=== PATIENT | male | born 1955 ===

== ENCOUNTER 2017-02-21 13:44 | Emergency (ER) | payer MEDICAID, OTHER ==
[2017-02-21 13:56] VITALS: TEMP 97.7
[2017-02-21] MEDS ORDERED: (Novolin R) Insulin Human Regular 100 units/ml vial IV STA (14:01)
[2017-02-21] MEDS ORDERED: Sodium Chloride 0.9% 1,000 ML IV STA (14:01)
[2017-02-21 14:11] LABS: BASO % 0.4 % (0.0-2.0); EOS % 0.1 % (0.0-4.0); HEMOGLOBIN 9.2 g/dL (12.0-18.0); LYMPH # 0.5 K/uL (1.0-4.3); LYMPH % 6.9 % (20.0-40.0); MEAN CORPUSCULAR HEMOGLOBIN 23.4 pg (27.0-31.0); MEAN CORPUSCULAR HGB CONC 32.5 g/dL (33.0-37.0); MEAN PLATELET VOLUME 9.1 fL (7.2-11.7); MONO # 0.3 K/uL (0.0-0.8); MONO % 4.8 % (0.0-10.0); NEUT % 87.8 % (50.0-75.0); NRBC % 0.1 % (0.0-2.0); PLATELET COUNT 219 K/uL (130-400); RBC 3.95 Mil/uL (4.40-5.90); RED CELL DISTRIBUTION WIDTH 15.7 % (11.5-14.5); WHITE BLOOD COUNT 6.9 K/uL (4.8-10.8)
[2017-02-21 14:13] LABS: PROTHROMBIN TIME 11.6 SECONDS (9.7-12.2)
[2017-02-21] MEDS ORDERED: (Novolin R) Insulin Human Regular 100 units/ml vial ONE (14:15)
[2017-02-21] MEDS ORDERED: Insulin Human Regular 100 UNIT in Sodium Chloride 0.9% 99 ML IV SCH (14:15)
--- NOTE | 2017-02-21 14:21 | RAD ---
PROCEDURE: CHEST RADIOGRAPH, 1 VIEW HISTORY: BASELINE COMPARISON: None available. FINDINGS: LUNGS: The lungs are well inflated and clear. PLEURA: No pneumothorax or pleural fluid seen. CARDIOVASCULAR: Normal. OSSEOUS STRUCTURES: No significant abnormalities. VISUALIZED UPPER ABDOMEN: Normal. OTHER FINDINGS: None. IMPRESSION: No active pulmonary disease.
[2017-02-21 14:27] LABS: ALB/GLOB RATIO 1.1 (1.0-2.1); ALBUMIN 3.8 g/dL (3.5-5.0); ALT/SGPT 111 U/L (21-72); AST/SGOT 49 U/L (17-59); BLOOD UREA NITROGEN 26 mg/dL (9-20); CALCIUM 8.2 mg/dl (8.6-10.4); GFR AFRICAN-AMERICAN > 60; GFR NON-AFRICAN AMERICAN > 60
[2017-02-21 14:38] LABS: CK-MB 5.61 ng/mL (0.0-3.38)
[2017-02-21 14:41] LABS: ABG ALLEN TEST PO; ARTERIAL BLOOD GAS HCO3 22.3 mmol/L (21-28); ARTERIAL BLOOD GAS O2 SAT 98.8 % (95-98); ARTERIAL BLOOD GAS PCO2 32 mm/Hg (35-45); ARTERIAL BLOOD GAS PH 7.41 (7.35-7.45); ARTERIAL BLOOD GAS PO2 111 mm/Hg (80-100); ARTERIAL BLOOD GAS TCO2 21.3 mmol/L (22-28)
[2017-02-21 14:42] LABS: LYMPHOCYTE 7 % (20-40); MONOCYTE 6 % (0-10); NEUTROPHIL 87 % (50-75); TOTAL CELLS COUNTED 100
[2017-02-21 14:43] LABS: ANISOCYTOSIS SLIGHT; PLATELET ESTIMATE NORMAL (NORMAL); POIKILOCYTOSIS SLIGHT
[2017-02-21 14:44] LABS: HYPOCHROMIC SLIGHT; MICROCYTOSIS SLIGHT; OVALOCYTES SLIGHT; TARGET CELLS SLIGHT; TEARDROP CELLS SLIGHT
[2017-02-21 15:01] LABS: URINE BILIRUBIN NEGATIVE (NEGATIVE); URINE BLOOD NEGATIVE (NEGATIVE); URINE CLARITY Clear (Clear); URINE COLOR Straw (YELLOW); URINE GLUCOSE (UA) 3+ mg/dL (Normal); URINE LEUKOCYTE ESTERASE NEG Leu/uL (Negative); URINE NITRATE NEGATIVE (NEGATIVE); URINE PROTEIN NEGATIVE (NEGATIVE); URINE UROBILINOGEN NORMAL mg/dL (0.2-1.0)
--- NOTE | 2017-02-21 15:50 | C.PDOC ---
Time Seen by Provider: 02/21/17 13:57 Chief Complaint (Nursing): GI Problem Past Medical History Vital Signs: Last Vital Signs Temp 97.7 F 02/21/17 13:50 Pulse 112 H 02/21/17 15:51 Resp 22 02/21/17 15:51 BP 117/65 02/21/17 15:51 Pulse Ox 98 02/25/17 00:34 - Social History Hx Alcohol Use: No Hx Substance Use: No ED Course And Treatment - Laboratory Results Result Diagrams: 02/21/17 14:01 02/21/17 14:01 O2 Sat by Pulse Oximetry: 98 - Radiology CXR: Viewed By Me, Read By Radiologist CXR Interpretation: Yes: Other (IMPRESSION: No active pulmonary disease.) Disposition Doctor Will See Patient In The: Office Counseled Patient/Family Regarding: Studies Performed, Diagnosis - Disposition [facility] Disposition: HOME/ ROUTINE Condition: GOOD Additional Instructions: Continue Glargine Insulin subcutaneous 30 units before bed. Continue Pioglitazone 30 mg daily- take in AM with breakfast (never take without food) Check your finger stick BEFORE breakfast and Dinner and write down in your Fingerstick Log Bring to your Clinic visit in 2 weeks. Prescriptions: Blood Sugar Diagnostic [Test Strips] 1 each MC AC #60 strip Insulin Glargine,Hum.rec.anlog [Talha Lacey] 30 unit SQ HS #3 insuln.pen Lancets 1 each MC BID #60 each Pioglitazone [Actos] 30 mg PO DAILY #30 tab Instructions: Diabetes Mellitus Type 2 in Adults (ED) Forms: [employer] (Chinese) - Clinical Impression Clinical Impression: Hyperglycemia
[2017-02-21 15:54] VITALS: BP 117/65; PULSE 112; RESP 22; O2SAT 98
--- NOTE | 2017-02-21 15:54 | C.PDOC ---
History Of Present Illness 61 year old male with a past medical history of diabetes who presents to the emergency department with abnormally large volumes of dilute urine and excessive thrist. States he has an uncontrollable blood sugar at home. Patient ran out of Lantus and oral diabetes medications 2 weeks ago and did not refill his medications yet. Patient usually follows up with [facility]. Time Seen by Provider: 02/21/17 13:57 Chief Complaint (Nursing): GI Problem History Per: Patient History/Exam Limitations: no limitations Past Medical History Reviewed: Historical Data, Nursing Documentation, Vital Signs Vital Signs: Last Vital Signs Temp 97.7 F 02/21/17 13:50 Pulse 112 H 02/21/17 15:51 Resp 22 02/21/17 15:51 BP 117/65 02/21/17 15:51 Pulse Ox 98 02/25/17 00:35 - Medical History PMH: Diabetes Family History: States: No Known Family Hx - Social History Hx Alcohol Use: No Hx Substance Use: No Review Of Systems Except As Marked, All Systems Reviewed And Found Negative. (As per HPI, otherwise negative) ENT: Positive for: Other (Excessive thrist) Gastrointestinal: Positive for: Other (abnormally large volumes of dilute urine) Physical Exam - Physical Exam Appears: Well, Non-toxic Skin: Normal Color, Warm, Dry Head: Atraumatic, Normacephalic Eye(s): bilateral: Normal Inspection Ear(s): Bilateral: Normal Oral Mucosa: Dry (oropharynx) Teeth: Normal Dentition Gingiva: Normal Appearing Throat: Normal Cardiovascular: Rhythm Regular, No Murmur Respiratory: Normal Breath Sounds, No Decreased Breath Sounds, No Accessory Muscle Use, No Wheezing Gastrointestinal/Abdominal: Normal Exam, Soft, No Tenderness Extremity: Normal ROM, No Pedal Edema Neurological/Psych: Oriented x3 Gait: Steady ED Course And Treatment - Laboratory Results Result Diagrams: 02/21/17 14:01 02/21/17 14:01 Lab Interpretation: Abnormal (elev glu, recheck WNL, ABG wnl, ketones neg., no acidosis) ECG Rhythm: Sinus Tachycardia ECG Interpretation: Abnormal Rate From EC O2 Sat by Pulse Oximetry: 98 (RA) Pulse Ox Interpretation: Normal - Radiology CXR: Interpreted by Nv CXR Interpretation: Yes: No Acute Disease Progress Note: insulin, IVF Reevaluation Time: 15:54 Reassessment Condition: Improved Medical Decision Making Medical Decision Making: uncontrolled DM, ran out of meds 2 weeks ago NO DKA Glargine 30 U QHS Pioglitazone 30 mg daily refill test strips/lancets outpatient f/u w [facility] w weeks. NO Hematemasis- normal bilious vomiting, no s/s of upper GIB Time: 1420 --Chest x-ray IMPRESSION: No active pulmonary disease. Time: 1556 --Patient is stable for discharge. Sent home with Rx of Test strips, Toujeo Solostar 30 units, and Actos 30 mg. Disposition Doctor Will See Patient In The: Office Counseled Patient/Family Regarding: Studies Performed, Diagnosis - Disposition Referrals: [facility] [employer] [Outside] Disposition: HOME/ ROUTINE Disposition Time: 15:56 Condition: GOOD Additional Instructions: Continue Glargine Insulin subcutaneous 30 units before bed. Continue Pioglitazone 30 mg daily- take in AM with breakfast (never take without food) Check your finger stick BEFORE breakfast and Dinner and write down in your Fingerstick Log Bring to your Clinic visit in 2 weeks. Prescriptions: Blood Sugar Diagnostic [Test Strips] 1 each AC #60 strip Insulin Glargine,Hum.rec.anlog [Toujeo Solostar] 30 unit SQ HS #3 insuln.pen Lancets 1 each MC BID #60 each Pioglitazone [Actos] 30 mg PO DAILY #30 tab Instructions: Diabetes Mellitus Type 2 in Adults (ED) Forms: [employer] (Azeri) - Clinical Impression Clinical Impression: Hyperglycemia
--- NOTE | 2017-02-26 16:24 | CARD ---
APPROVED REPORT EKG Measurement Heart [id number] <Conclusion> Sinus tachycardia Otherwise normal ECG
== END 2017-02-21 16:20 | disposition home or self-care (01) ==
LOC: C.ER 13:44
DX: E11.65 Type 2 diabetes mellitus with hyperglycemia (principal)
CPT/HCPCS: 71045; 80053; 81001; 82009; 82803; 82948; 83036; 84484; 85025; 85610; 85730; 93005; 96360; 99285; J7040

== ENCOUNTER 2017-04-04 16:35 | Inpatient (IN) | payer MEDICAID, OTHER ==
[2017-04-04 17:17] VITALS: BMI 23.9
[2017-04-04 18:41] LABS: EOS # 0.1 K/uL (0.0-0.7); EOS % 1.7 % (0.0-4.0); LYMPH # 0.5 K/uL (1.0-4.3); MONO # 0.3 K/uL (0.0-0.8); NRBC % 0.2 % (0.0-2.0)
[2017-04-04 18:46] LABS: BASO % 0.5 % (0.0-2.0); LYMPH % 16.3 % (20.0-40.0); MEAN CELL VOLUME 64.3 fL (80.0-94.0); MEAN CORPUSCULAR HEMOGLOBIN 18.8 pg (27.0-31.0); MEAN CORPUSCULAR HGB CONC 29.3 g/dL (33.0-37.0); MEAN PLATELET VOLUME 8.8 fL (7.2-11.7); NEUT # 2.3 K/uL (1.8-7.0); NEUT % 72.5 % (50.0-75.0); RBC 2.75 Mil/uL (4.40-5.90); RED CELL DISTRIBUTION WIDTH 18.5 % (11.5-14.5); WHITE BLOOD COUNT 3.2 K/uL (4.8-10.8)
[2017-04-04 18:51] LABS: HEMOGLOBIN 5.2 g/dL (12.0-18.0)
[2017-04-04 18:52] LABS: ALB/GLOB RATIO 1.1 (1.0-2.1); ALBUMIN 3.3 g/dL (3.5-5.0); ALT/SGPT 123 U/L (21-72); AST/SGOT 74 U/L (17-59); BLOOD UREA NITROGEN 16 mg/dL (9-20); CALCIUM 8.3 mg/dl (8.6-10.4); GFR AFRICAN-AMERICAN > 60; GFR NON-AFRICAN AMERICAN > 60; INR 1.1; PROTHROMBIN TIME 11.8 SECONDS (9.7-12.2)
[2017-04-04 19:03] LABS: B-TYPE NATRIURETIC PEPTIDE 125 pg/mL (0-900)
--- NOTE | 2017-04-04 19:08 | C.PDOC ---
History Of Present Illness 62 y/o male referred to ED for dyspnea on exertion and leg swelling for the past week. Pt was found to have hemoglobin of 5.3 at PMD office. Denies chest pain, cough, black tarry stool, milad blood in stool/urine, or fever. Denies history of blood transfusion in the past. Chief Complaint (Nursing): Abnormal Labs History Per: Patient History/Exam Limitations: no limitations Onset/Duration Of Symptoms: Days Current Symptoms Are (Timing): Still Present Reports Recently: Treated By A Physician Recent travel outside of the [place]: No Additional History Per: Patient Past Medical History Reviewed: Historical Data, Nursing Documentation, Vital Signs Vital Signs: Last Vital Signs Temp 98.3 F 04/04/17 22:54 Pulse 107 H 04/04/17 22:54 Resp 18 04/04/17 22:54 BP 118/66 04/04/17 22:54 Pulse Ox 97 04/04/17 22:54 - Medical History PMH: Diabetes Family History: States: Unknown Family Hx - Social History Hx Alcohol Use: No (Former) Hx Substance Use: No - Immunization History Hx Tetanus Toxoid Vaccination: No Hx Influenza Vaccination: No Hx Pneumococcal Vaccination: No Review Of Systems Except As Marked, All Systems Reviewed And Found Negative. Constitutional: Negative for: Fever, Chills Cardiovascular: Positive for: Edema (leg swelling). Negative for: Chest Pain, Palpitations Respiratory: Positive for: Shortness of Breath, SOB with Excertion. Negative for: Cough, Sputum Gastrointestinal: Negative for: Nausea, Vomiting, Abdominal Pain, Diarrhea, Melena, Hematochezia, Hematemesis Genitourinary: Negative for: Dysuria, Hematuria Musculoskeletal: Negative for: Back Pain Physical Exam - Physical Exam Appears: Non-toxic, No Acute Distress Skin: Warm, Dry, Pale Head: Atraumatic, Normacephalic Eye(s): bilateral: Conjunctiva Pale Oral Mucosa: Moist Cardiovascular: Rhythm Regular Respiratory: Normal Breath Sounds, No Rales, No Rhonchi, No Wheezing Gastrointestinal/Abdominal: Soft, No Tenderness Extremity: Normal ROM, Pedal Edema (edema to bilateral knees), Capillary Refill (less than 2 seconds), No Deformity Neurological/Psych: Oriented x3, Normal Speech ED Course And Treatment - Laboratory Results Result Diagrams: 04/04/17 18:34 04/04/17 18:34 O2 Sat by Pulse Oximetry: 99 Pulse Ox Interpretation: Normal Medical Decision Making Medical Decision Making: Plan: Blood work Urinalysis CXR/EKG Reassess Disposition - Disposition Disposition: HOSPITALIZED Disposition Time: 18:40 Condition: FAIR - Clinical Impression Clinical Impression: Symptomatic anemia - Scribe Statement The provider has reviewed the documentation as recorded by the Poojaibmae Russell All medical record entries made by the Poojaibmae were at my direction and personally dictated by me. I have reviewed the chart and agree that the record accurately reflects my personal performance of the history, physical exam, medical decision making, and the department course for this patient. I have also personally directed, reviewed, and agree with the discharge instructions and disposition.
--- NOTE | 2017-04-04 20:04 | CP.PCM.HP ---
<Alondra Anglin - Last Filed: 04/04/17 21:18> History of Present Illness - History of Present Illness History of Present Illness: Medicine Note for Hospitalist Service CC: low hemoglobin, sent by PMD HPI: 62 Male with PMHx of T2DM (diagnosed 2017) presents to the ED after being sent in by PMD for low hemoglobin. Patient reports for the past month or so he has been feeling fatigue, weak, short of breath during ambulation (up stairs or walking 2-3 blocks). His daughter was at bedside and said she noticed her father started looking pale this weak. He reported no blood in stool. He denied any presyncope or syncopal episode. He admitted to noticing bilateral lower extremity swelling 2-3 days ago. Patient has never had a colonoscopy before. Denied fever, chills, headache, chest pain, SOB, abdominal pain, n/v/d/c, or urinary symptoms. PMHx: T2DM PSHx: Denied Meds: All: NKDA SHx: Denied tobacco, alcohol, or illicit drug use FHx: Unremarkable PMD: [facility] Present on Admission - Present on Admission Any Indicators Present on Admission: Yes History of Uncontrolled Diabetes: Yes Past Patient History - Infectious Disease Hx of Infectious Diseases: None - Past Social History Smoking Status: Never Smoked - PSYCHIATRIC Hx Substance Use: No - SURGICAL HISTORY Hx Surgeries: No - ANESTHESIA Hx Anesthesia: No Meds Allergies/Adverse Reactions: Allergies Allergy/AdvReac Type Severity Reaction Status Date / Time No Known Allergies Allergy Verified 04/04/17 17:15 Physical Exam - Constitutional Appears: No Acute Distress - Head Exam Head Exam: NORMAL INSPECTION, NORMOCEPHALIC - Eye Exam Eye Exam: EOMI, Normal appearance, PERRL Pupil Exam: NORMAL ACCOMODATION - ENT Exam ENT Exam: Mucous Membranes Moist (poor dentition ) - Respiratory Exam Respiratory Exam: Clear to Auscultation Bilateral, NORMAL BREATHING PATTERN - Cardiovascular Exam Cardiovascular Exam: REGULAR RHYTHM - GI/Abdominal Exam GI & Abdominal Exam: Normal Bowel Sounds, Soft. absent: Distended, Tenderness - Rectal Exam Rectal Exam: Deferred (performed by ED physician ) - Extremities Exam Extremities exam: Positive for: normal inspection, pedal edema (+1 bilateral ), pedal pulses present. Negative for: calf tenderness - Back Exam Back exam: NORMAL INSPECTION - Neurological Exam Neurological exam: Alert, CN II-XII Intact, Oriented x3 - Psychiatric Exam Psychiatric exam: Normal Affect, Normal Mood - Skin Skin Exam: Dry, Intact, Pallor, Warm Results - Vital Signs Recent Vital Signs: Last Vital Signs Temp 98.1 F 04/04/17 17:19 Pulse 104 H 04/04/17 17:19 Resp 17 04/04/17 17:19 BP 151/81 H 04/04/17 17:19 Pulse Ox 99 04/04/17 19:12 - Labs Result Diagrams: 04/04/17 18:34 04/04/17 18:34 Labs: Laboratory Results - last 24 hr 04/04/17 04/04/17 04/04/17 18:34 18:34 18:34 WBC 3.2 L D RBC 2.75 L Hgb 5.2 L* D Hct 17.7 L MCV 64.3 L D MCH 18.8 L MCHC 29.3 L RDW 18.5 H Plt Count 238 MPV 8.8 Neut % (Auto) 72.5 Lymph % (Auto) 16.3 L [place] % (Auto) 9.0 Eos % (Auto) 1.7 Baso % (Auto) 0.5 Neut # (Auto) 2.3 Lymph # (Auto) 0.5 L [place] # (Auto) 0.3 Eos # (Auto) 0.1 Baso # (Auto) 0.0 PT 11.8 INR 1.1 APTT 27 Sodium 137 Potassium 3.9 Chloride 106 Carbon Dioxide 25 Anion Gap 10 BUN 16 Creatinine 0.9 Est GFR ( Amer) > 60 Est GFR (Non-Af Amer) > 60 Random Glucose 118 H Calcium 8.3 L Total Bilirubin 0.3 AST 74 H D ALT 123 H Alkaline Phosphatase 56 Troponin I < 0.0120 NT-Pro-B Natriuret Pep 125 Total Protein 6.2 L Albumin 3.3 L Globulin 2.9 Albumin/Globulin Ratio 1.1 Blood Type Antibody Screen 04/04/17 18:34 WBC RBC Hgb Hct MCV MCH MCHC RDW Plt Count MPV Neut % (Auto) Lymph % (Auto) [place] % (Auto) Eos % (Auto) Baso % (Auto) Neut # (Auto) Lymph # (Auto) [place] # (Auto) Eos # (Auto) Baso # (Auto) PT INR APTT Sodium Potassium Chloride Carbon Dioxide Anion Gap BUN Creatinine Est GFR ( Amer) Est GFR (Non-Af Amer) Random Glucose Calcium Total Bilirubin AST ALT Alkaline Phosphatase Troponin I NT-Pro-B Natriuret Pep Total Protein Albumin Globulin Albumin/Globulin Ratio Blood Type B POSITIVE Antibody Screen Negative Assessment & Plan - Assessment and Plan (Free Text) Assessment: 62 Male with PMHx of T2DM (diagnosed 2016) presents to the ED after being sent in by PMD for hemoglobin 5.2 with + stool occult. Plan: Symptomatic Anemia GI consulted - Dr. Andre- help appreciated Baseline hemoglobin 9.2 on 02/21/17 On admission 5.2 EKG: Sinus Tachy + stool occult, no active bleed, f/u 2 stool occults No prior colonoscopy Will be transfused 2 units of PRBCs. 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 Argueta, Alondra Anglin DO, PGY-1 <Ankit Argueta - Last Filed: 04/05/17 06:28> Results - Vital Signs Recent Vital Signs: Last Vital Signs Temp 98.9 F 04/05/17 06:07 Pulse 110 H 04/05/17 06:07 Resp 22 04/05/17 06:07 BP 136/65 04/05/17 06:07 Pulse Ox 95 04/04/17 23:25 - Labs Result Diagrams: 04/04/17 18:34 04/04/17 18:34 Labs: Laboratory Results - last 24 hr 04/04/17 04/04/17 04/04/17 18:34 18:34 18:34 WBC 3.2 L D RBC 2.75 L Hgb 5.2 L* D Hct 17.7 L MCV 64.3 L D MCH 18.8 L MCHC 29.3 L RDW 18.5 H Plt Count 238 MPV 8.8 Neut % (Auto) 72.5 Lymph % (Auto) 16.3 L [place] % (Auto) 9.0 Eos % (Auto) 1.7 Baso % (Auto) 0.5 Neut # (Auto) 2.3 Lymph # (Auto) 0.5 L [place] # (Auto) 0.3 Eos # (Auto) 0.1 Baso # (Auto) 0.0 Retic Count PT 11.8 INR 1.1 APTT 27 Sodium 137 Potassium 3.9 Chloride 106 Carbon Dioxide 25 Anion Gap 10 BUN 16 Creatinine 0.9 Est GFR ( Amer) > 60 Est GFR (Non-Af Amer) > 60 Random Glucose 118 H Calcium 8.3 L Iron TIBC % Saturation Total Bilirubin 0.3 AST 74 H D ALT 123 H Alkaline Phosphatase 56 Troponin I < 0.0120 NT-Pro-B Natriuret Pep 125 Total Protein 6.2 L Albumin 3.3 L Globulin 2.9 Albumin/Globulin Ratio 1.1 Stool Occult Blood Hepatitis A IgM Ab Hep Bs Antigen Hep B Core IgM Ab Hepatitis C Antibody Blood Type Blood Type Confirm Antibody Screen 04/04/17 04/04/17 04/04/17 18:34 19:59 20:42 WBC RBC Hgb Hct MCV MCH MCHC RDW Plt Count MPV Neut % (Auto) Lymph % (Auto) [place] % (Auto) Eos % (Auto) Baso % (Auto) Neut # (Auto) Lymph # (Auto) [place] # (Auto) Eos # (Auto) Baso # (Auto) Retic Count PT INR APTT Sodium Potassium Chloride Carbon Dioxide Anion Gap BUN Creatinine Est GFR ( Amer) Est GFR (Non-Af Amer) Random Glucose Calcium Iron 19 L TIBC 434 % Saturation 4 L Total Bilirubin AST ALT Alkaline Phosphatase Troponin I NT-Pro-B Natriuret Pep Total Protein Albumin Globulin Albumin/Globulin Ratio Stool Occult Blood Positive H Hepatitis A IgM Ab Hep Bs Antigen Hep B Core IgM Ab Hepatitis C Antibody Blood Type B POSITIVE Blood Type Confirm B POSITIVE Antibody Screen Negative 04/04/17 04/04/17 04/04/17 20:42 20:42 20:42 WBC RBC Hgb Hct MCV MCH MCHC RDW Plt Count MPV Neut % (Auto) Lymph % (Auto) [place] % (Auto) Eos % (Auto) Baso % (Auto) Neut # (Auto) Lymph # (Auto) [place] # (Auto) Eos # (Auto) Baso # (Auto) Retic Count 2.6 H PT INR APTT Sodium Potassium Chloride Carbon Dioxide Anion Gap BUN Creatinine Est GFR ( Amer) Est GFR (Non-Af Amer) Random Glucose Calcium Iron Cancelled TIBC Cancelled % Saturation Total Bilirubin AST ALT Alkaline Phosphatase Troponin I NT-Pro-B Natriuret Pep Total Protein Albumin Globulin Albumin/Globulin Ratio Stool Occult Blood Hepatitis A IgM Ab Negative Hep Bs Antigen Negative Hep B Core IgM Ab Negative Hepatitis C Antibody Negative Blood Type Blood Type Confirm Antibody Screen Assessment & Plan - Date & Time Date: 04/05/17 (I have seen and examined the patient. I agree with the findings and plan of care as documented by Dr. Anglin. Patient with symptomatic anemia. Hemoccult positive. Also with transaminitis. Transfuse 2 units of PRBCs for now. Recheck CBC and transfuse more if necessary. Protonix. Consult to GI. Monitor for acute changes and for hemodynamic instability.) Time: 06:26 Attending/Attestation - Attestation I have personally seen and examined this patient.: Yes I have fully participated in the care of the patient.: Yes I have reviewed all pertinent clinical information: Yes
[2017-04-04] MEDS ORDERED: Sodium Chloride 0.9% 1,000 ML IV SCH (21:15)
[2017-04-04 21:16] LABS: IRON 19 ug/dL (49-181)
[2017-04-04 21:25] LABS: TOTAL IRON BINDING CAPACITY 434 ug/dL (250-450)
[2017-04-04 21:26] LABS: % IRON SATURATION 4 (20-55)
[2017-04-04] MEDS ORDERED: Sodium Chloride 0.9% 1,000 ML ONE (21:30)
[2017-04-04 21:39] LABS: HEPATITIS B SURFACE AG Negative (NEGATIVE)
[2017-04-04 21:45] LABS: HEPATITIS A IGM NEGATIVE (NEGATIVE); HEPATITIS B CORE AB NEGATIVE (NEGATIVE)
[2017-04-04 21:56] LABS: HEPATITIS C ANTIBODY NEGATIVE (NEGATIVE)
[2017-04-04] MEDS ORDERED: Rosuvastatin Calcium 2.5 mg Tab PO SCH (22:00)
[2017-04-04] MEDS ORDERED: (Novolin R) Insulin Human Regular 100 units/ml vial SC SCH (22:00)
[2017-04-05] MEDS ORDERED: Glucagon Recombinant 1 mg Inj IM PRN (08:36)
[2017-04-05] MEDS ORDERED: Dextrose 50% SYRINGE Inj (50 ml) IV PRN (08:36)
--- NOTE | 2017-04-05 08:54 | RAD ---
PROCEDURE: CHEST RADIOGRAPH, 1 VIEW HISTORY: fatigue COMPARISON: Comparison is made with 02/21/2017 FINDINGS: LUNGS: Clear. PLEURA: No pneumothorax or pleural fluid seen. CARDIOVASCULAR: Normal. OSSEOUS STRUCTURES: No significant abnormalities. VISUALIZED UPPER ABDOMEN: Normal. OTHER FINDINGS: None. IMPRESSION: No active disease.
[2017-04-05] MEDS ORDERED: Ferric Sodium Gluconat Complex 62.5 mg/5 ml Vial IVPB SCH (10:00)
[2017-04-05] MEDS ORDERED: Pantoprazole 40 mg EC Tab PO SCH (10:00)
[2017-04-05] MEDS ORDERED: (Novolog) Insulin Aspart, Recombinant 100 u/ml 10 ml vial SC SCH ×2 (11:30→13:30)
[2017-04-05 11:47] LABS: BASO % 0.7 % (0.0-2.0); EOS # 0.1 K/uL (0.0-0.7); EOS % 1.8 % (0.0-4.0); LYMPH # 0.6 K/uL (1.0-4.3); LYMPH % 16.3 % (20.0-40.0); MEAN CORPUSCULAR HEMOGLOBIN 22.7 pg (27.0-31.0); MEAN CORPUSCULAR HGB CONC 31.9 g/dL (33.0-37.0); MEAN PLATELET VOLUME 9.1 fL (7.2-11.7); MONO # 0.3 K/uL (0.0-0.8); MONO % 8.4 % (0.0-10.0); NEUT # 2.7 K/uL (1.8-7.0); NEUT % 72.8 % (50.0-75.0); NRBC % 0.1 % (0.0-2.0); RBC 3.4 Mil/uL (4.40-5.90); RED CELL DISTRIBUTION WIDTH 23.9 % (11.5-14.5); WHITE BLOOD COUNT 3.7 K/uL (4.8-10.8)
[2017-04-05 11:54] LABS: HEMOGLOBIN 7.7 g/dL (12.0-18.0); MEAN CELL VOLUME 71.2 fL (80.0-94.0)
[2017-04-05 12:19] LABS: ALB/GLOB RATIO 1.1 (1.0-2.1); ALBUMIN 3.1 g/dL (3.5-5.0); ALT/SGPT 124 U/L (21-72); AST/SGOT 79 U/L (17-59); BLOOD UREA NITROGEN 14 mg/dL (9-20); CALCIUM 8.3 mg/dl (8.6-10.4); GFR AFRICAN-AMERICAN > 60; GFR NON-AFRICAN AMERICAN > 60; HDL CHOLESTEROL 28 mg/dL (30-70); MAGNESIUM 1.8 mg/dL (1.6-2.3)
--- NOTE | 2017-04-05 12:24 | CP.PCM.PN ---
<Michael Nicole - Last Filed: 04/05/17 12:21> Subjective - Date & Time of Evaluation Date of Evaluation: 04/05/17 Time of Evaluation: 12:24 - Subjective Subjective: PGY2 Note for Dr. Liu Medicine Service Patient seen and examined at bedside this AM; denies any worsening of symptoms; states he had been feeling kind of run down the past week or two and looking more pale this week which prompted him to come into the hospital. States he has been more or less healthy; newly diagnosed with diabetes last year with an A1C most recently of 11.8 as per records; patient is very unwilling to stay to have complete workup and denies all symptoms today fevers/chills, CERVANTES, CP, SOB, abdominal pain, N/V/D, dysuria/freq/urg or lower extremity pain. Objective - Vital Signs/Intake and Output Vital Signs (last 24 hours): Temp Pulse Resp BP Pulse Ox 98.4 F 96 H 20 152/82 H 95 04/05/17 08:47 04/05/17 08:47 04/05/17 08:47 04/05/17 08:47 04/05/17 08:43 Intake and Output: 04/05/17 04/05/17 06:59 18:59 Intake Total 1290 335 Balance 1290 335 - Medications Medications: Current Medications Dextrose (Dextrose 50% Inj) 0 ml IV STAT PRN; Protocol PRN Reason: Hypoglycemia Protocol Dextrose (Glutose 15) 0 gm PO ONCE PRN; Protocol PRN Reason: Hypoglycemia Protocol Ferric Sodium Gluconate Complex (Ferrlecit) 125 mg IVPB DAILY [facility] Stop: 04/10/17 10:01 Last Admin: 04/05/17 09:25 Dose: 125 mg Glucagon (Glucagen Diagnostic Kit) 0 mg IM STAT PRN; Protocol PRN Reason: Hypoglycemia Protocol Sodium Chloride (Sodium Chloride 0.9%) 1,000 mls @ 100 mls/hr IV .Q10H [facility] Last Admin: 04/04/17 21:31 Dose: 100 mls/hr Dextrose (Dextrose 5% In Water 1000 Ml) 1,000 mls @ 0 mls/hr IV .Q0M PRN; Protocol; Per Protocol PRN Reason: Hypoglycemia Protocol Insulin Aspart (Novolog) 0 unit SC ACHS [facility] PRN Reason: Protocol Insulin Glargine (Lantus) 30 unit SC QPM [facility] Lisinopril (Zestril) 2.5 mg PO DAILY [facility] Last Admin: 04/05/17 09:25 Dose: 2.5 mg Ondansetron HCl (Zofran Inj) 4 mg IVP Q6 PRN PRN Reason: Nausea/Vomiting Pantoprazole Sodium (Protonix Inj) 80 mg IVP Q12H [facility] Last Admin: 04/05/17 09:34 Dose: 80 mg Rosuvastatin Calcium (Crestor) 2.5 mg PO HS [facility] - Labs Labs: 04/05/17 11:39 04/05/17 11:39 PT 11.8 SECONDS (9.7-12.2) 04/04/17 18:34 INR 1.1 04/04/17 18:34 APTT 27 SECONDS (21-34) 04/04/17 18:34 - Constitutional Appears: Non-toxic - Head Exam Head Exam: ATRAUMATIC - Eye Exam Eye Exam: EOMI Pupil Exam: PERRL - ENT Exam ENT Exam: Mucous Membranes Moist - Neck Exam Neck Exam: Full ROM - Respiratory Exam Respiratory Exam: Clear to Ausculation Bilateral, NORMAL BREATHING PATTERN. absent: Rales, Rhonchi, Wheezes - Cardiovascular Exam Cardiovascular Exam: REGULAR RHYTHM, +S1, +S2 - GI/Abdominal Exam GI & Abdominal Exam: Soft, Normal Bowel Sounds - Extremities Exam Extremities Exam: Full ROM. absent: Calf Tenderness - Back Exam Back Exam: absent: CVA tenderness (L), CVA tenderness (R) - Neurological Exam Neurological Exam: Alert, Awake, Oriented x3 - Psychiatric Exam Psychiatric exam: Normal Affect, Normal Mood - Skin Skin Exam: Warm Assessment and Plan - Assessment and Plan (Free Text) Assessment: 62 Male with PMHx of T2DM (diagnosed 2017) presents to the ED after being sent in by PMD for hemoglobin 5.2 with + stool occult. Symptomatic Anemia GI consulted - Dr. Andre- help appreciated Baseline hemoglobin 9.2 on 02/21/17 On admission 5.2-->7.7 response appropriate, will give 2 more units today EKG: Sinus Tachy on admission + stool occult, no active bleed, f/u 2 stool occults No prior colonoscopy; no fam hx of cancer; no B symptoms Will be transfused 2 units of PRBCs. Consent in Chart NPO, IV Protonix 80mg IV BID for GI bleed T2DM Accuchecks Carb Consistent Diet A1C 02/2017 - 11.5 Spoke to patient about diet, exercise, and importance of following up with an lawn service worker and bioinformatics support specialist Lantus 30units SC QHS ISS- Mod Lisinopril 2.5mg PO daily, Crestor 2.5mg PO QHS Transaminitis negative for hepatitis Bilateral LE Swelling Negative Calf Tenderness bilaterally F/U ECHO has improved with blood transfusions Prophylactic Measures GI PPX: Protonix 80mg IV BID DVT PPX: SCDs, VTE c/i due to symptomatic anemia Patient is unwilling to have complete workup at this time and is likely to AMA; will need colonoscopy Case discussed and seen with DR. Liu <Urszula Liu V - Last Filed: 04/05/17 13:20> Objective - Vital Signs/Intake and Output Vital Signs (last 24 hours): Temp Pulse Resp BP Pulse Ox 98.4 F 96 H 20 152/82 H 95 04/05/17 08:47 04/05/17 08:47 04/05/17 08:47 04/05/17 08:47 04/05/17 08:43 Intake and Output: 04/05/17 04/05/17 06:59 18:59 Intake Total 1290 335 Balance 1290 335 - Medications Medications: Current Medications Dextrose (Dextrose 50% Inj) 0 ml IV STAT PRN; Protocol PRN Reason: Hypoglycemia Protocol Dextrose (Glutose 15) 0 gm PO ONCE PRN; Protocol PRN Reason: Hypoglycemia Protocol Ferric Sodium Gluconate Complex (Ferrlecit) 125 mg IVPB DAILY [facility] Stop: 04/10/17 10:01 Last Admin: 04/05/17 09:25 Dose: 125 mg Glucagon (Glucagen Diagnostic Kit) 0 mg IM STAT PRN; Protocol PRN Reason: Hypoglycemia Protocol Sodium Chloride (Sodium Chloride 0.9%) 1,000 mls @ 100 mls/hr IV .Q10H [facility] Last Admin: 04/04/17 21:31 Dose: 100 mls/hr Dextrose (Dextrose 5% In Water 1000 Ml) 1,000 mls @ 0 mls/hr IV .Q0M PRN; Protocol; Per Protocol PRN Reason: Hypoglycemia Protocol Insulin Aspart (Novolog) 0 unit SC ACHS [facility] PRN Reason: Protocol Insulin Glargine (Lantus) 30 unit SC QPM [facility] Lisinopril (Zestril) 2.5 mg PO DAILY [facility] Last Admin: 04/05/17 09:25 Dose: 2.5 mg Ondansetron HCl (Zofran Inj) 4 mg IVP Q6 PRN PRN Reason: Nausea/Vomiting Pantoprazole Sodium (Protonix Inj) 80 mg IVP Q12H [facility] Last Admin: 04/05/17 09:34 Dose: 80 mg Rosuvastatin Calcium (Crestor) 2.5 mg PO HS [facility] - Labs Labs: 04/05/17 11:39 04/05/17 11:39 PT 11.8 SECONDS (9.7-12.2) 04/04/17 18:34 INR 1.1 04/04/17 18:34 APTT 27 SECONDS (21-34) 04/04/17 18:34 Attending/Attestation - Attestation I have personally seen and examined this patient.: Yes I have fully participated in the care of the patient.: Yes I have reviewed all pertinent clinical information, including history, physical exam and plan: Yes Notes (Text): Patient seen, examined, case discussed with medical unit secretary. Patient reports he's been feeling short of breath, fatigued, and reports dyspnea on exertion for quite some time however he was prompted to come in by his daughter who noted that he was pale. Patient denies any personal history of colon cancer nor family history of colon cancer. Patient denies any prior history of any anemia. Patient was placed nothing by mouth and started on Protonix IV. Patient has been given 2 units overnight of blood with hemoglobin improving from 5.2-7.7. Will provide additional 2 units of PRBCs for today. Patient does come with positive occult blood. Patient was recently diagnosed in February of this past year with diabetes as well, denies prior diagnosis of diabetes with an A1c noted is 11.5 started on a renal protective KJ inhibitor statin to prevent cardiovascular and is currently on insulin. Patient denies any history of unintentional weight loss, denies early satiety denies abdominal bloating denies any bleeding nor rash. Patient was noted this morning of trying to leave AGAINST MEDICAL ADVICE we have explained to the patient if he chooses to leave AGAINST MEDICAL ADVICE he puts himself at risk given that we do not know where he is bleeding from which can cause stress on both the heart be to arrhythmias heart attack syncope and cardiac arrest. Assessment/Plan 1) Symptomatic Anemia * GI consulted - Dr. Andre- help appreciated * Pending evaluation * Baseline hemoglobin 9.2 on 02/21/17 * On admission 5.2-->7.7 response appropriate, * Will give 2 more PRBCs units today * EKG: Sinus Tachy on admission * + stool occult, no gross hematuria bleed, f/u 2 stool occults * No prior colonoscopy; no fam hx of cancer; no B symptoms * NPO, Protonix 40mg IV BID for GI bleed * iron and iron stores are low, reticulocyte count is high, we will see if we can add ferritin to prior blood work 2) Dyspnea on exertion * ordered for echocardiogram 3) T2DM * Accuchecks Q6H * Carb Consistent Diet * A1C 02/2017 - 11.5 * Spoke to patient about diet, exercise, and importance of following up with an lawn service worker and bioinformatics support specialist * Lantus 30units SC QHS * ISS- Mod * Lisinopril 2.5mg PO daily * Crestor 2.5mg PO QHS 4) Transaminitis * negative for hepatitis * order for abdominal ultrasound 5) Bilateral LE Swelling * Negative Calf Tenderness bilaterally * minimal on exam 6) Prophylactic Measures * GI PPX: Protonix 40mg IV BID * DVT PPX: SCDs, VTE c/i due to symptomatic anemia Disposition: Tranfuse 2 more units of PRBC, awaiting GI evaluation
[2017-04-05 12:30] LABS: LDL CHOLESTEROL 84 mg/dL (0-129)
--- NOTE | 2017-04-05 15:20 | CP.PCM.CON ---
<Esther Dunaway - Last Filed: 04/05/17 15:14> History of Present Illness - History of Present Illness History of Present Illness: GI Fellow PGY4 Consult Note This is a 62 Male with PMHx of T2DM presents to the ED after being sent in by PMD for low hemoglobin of 5.3. Patient reports for the past month or so he has been feeling fatigue, weak, short of breath during ambulation. His family noticed he started looking pale and weak. He reported no blood in stool, no melena, hematochezia or hematemesis. He denied any presyncope or syncopal episode. He admitted to noticing bilateral lower extremity swelling 2-3 days ago. Patient has never had a colonoscopy before. Denied fever, chills, headache , chest pain, SOB, abdominal pain, n/v/d/c, or urinary symptoms. Pt was transfused 2U PRBCs overnight. ROS: A 12pt ROS was negative except as above PMHx: T2DM PSHx: Denied SHx: Denied tobacco, alcohol, or illicit drug use FHx: Unremarkable Past Patient History - Infectious Disease Hx of Infectious Diseases: None - Past Medical History & Family History Past Medical History?: Yes - Past Social History Smoking Status: Never Smoked - CARDIAC Hx Cardiac Disorders: No - PULMONARY Hx Respiratory Disorders: No - NEUROLOGICAL Hx Neurological Disorder: No - HEENT Hx HEENT Problems: No - RENAL Hx Chronic Kidney Disease: No - ENDOCRINE/METABOLIC Hx Endocrine Disorders: Yes Hx Diabetes Mellitus Type 2: Yes - HEMATOLOGICAL/ONCOLOGICAL Hx Blood Disorders: No - INTEGUMENTARY Hx Dermatological Problems: No - MUSCULOSKELETAL/RHEUMATOLOGICAL Hx Falls: No - GASTROINTESTINAL Hx Gastrointestinal Disorders: No - GENITOURINARY/GYNECOLOGICAL Hx Genitourinary Disorders: No - PSYCHIATRIC Hx Psychophysiologic Disorder: No Hx Substance Use: No - SURGICAL HISTORY Hx Surgeries: No - ANESTHESIA Hx Anesthesia: No Hx Anesthesia Reactions: No Hx Malignant Hyperthermia: No Has any member of the family had a problem w/ anesthesia?: No Meds Allergies/Adverse Reactions: Allergies Allergy/AdvReac Type Severity Reaction Status Date / Time No Known Allergies Allergy Verified 04/04/17 17:15 - Medications Medications: Current Medications Dextrose (Dextrose 50% Inj) 0 ml IV STAT PRN; Protocol PRN Reason: Hypoglycemia Protocol Dextrose (Glutose 15) 0 gm PO ONCE PRN; Protocol PRN Reason: Hypoglycemia Protocol Ferric Sodium Gluconate Complex (Ferrlecit) 125 mg IVPB DAILY [facility] Stop: 04/10/17 10:01 Last Admin: 04/05/17 09:25 Dose: 125 mg Glucagon (Glucagen Diagnostic Kit) 0 mg IM STAT PRN; Protocol PRN Reason: Hypoglycemia Protocol Sodium Chloride (Sodium Chloride 0.9%) 1,000 mls @ 100 mls/hr IV .Q10H [facility] Last Admin: 04/04/17 21:31 Dose: 100 mls/hr Dextrose (Dextrose 5% In Water 1000 Ml) 1,000 mls @ 0 mls/hr IV .Q0M PRN; Protocol; Per Protocol PRN Reason: Hypoglycemia Protocol Insulin Aspart (Novolog) 0 unit SC Q6H [facility] PRN Reason: Protocol Last Admin: 04/05/17 13:41 Dose: Not Given Insulin Glargine (Lantus) 15 unit SC QPM [facility] Lisinopril (Zestril) 2.5 mg PO DAILY [facility] Last Admin: 04/05/17 09:25 Dose: 2.5 mg Ondansetron HCl (Zofran Inj) 4 mg IVP Q6 PRN PRN Reason: Nausea/Vomiting Pantoprazole Sodium (Protonix Inj) 40 mg IVP Q12H KAYLEN Rosuvastatin Calcium (Crestor) 2.5 mg PO HS [facility] Physical Exam - Constitutional Appears: Non-toxic, No Acute Distress - Head Exam Head Exam: ATRAUMATIC, NORMAL INSPECTION, NORMOCEPHALIC - Eye Exam Eye Exam: EOMI, Normal appearance, PERRL - ENT Exam ENT Exam: Mucous Membranes Moist - Neck Exam Neck exam: Positive for: Normal Inspection - Respiratory Exam Respiratory Exam: Clear to Auscultation Bilateral, NORMAL BREATHING PATTERN - Cardiovascular Exam Cardiovascular Exam: REGULAR RHYTHM - GI/Abdominal Exam GI & Abdominal Exam: Normal Bowel Sounds - Rectal Exam Rectal Exam: NORMAL INSPECTION - Extremities Exam Extremities exam: Positive for: full ROM - Back Exam Back exam: NORMAL INSPECTION - Neurological Exam Neurological exam: Alert, Oriented x3 - Psychiatric Exam Psychiatric exam: Normal Affect, Normal Mood - Skin Skin Exam: Dry, Intact, Normal Color, Warm Results - Vital Signs Recent Vital Signs: Last Vital Signs Temp 98.0 F 04/05/17 13:35 Pulse 91 H 04/05/17 13:35 Resp 20 04/05/17 13:35 BP 148/91 H 04/05/17 13:35 Pulse Ox 95 04/05/17 08:43 - Labs Result Diagrams: 04/05/17 11:39 04/05/17 11:39 Labs: Laboratory Results - last 24 hr 04/04/17 04/04/17 04/04/17 18:34 18:34 18:34 WBC 3.2 L D RBC 2.75 L Hgb 5.2 L* D Hct 17.7 L MCV 64.3 L D MCH 18.8 L MCHC 29.3 L RDW 18.5 H Plt Count 238 MPV 8.8 Neut % (Auto) 72.5 Lymph % (Auto) 16.3 L [place] % (Auto) 9.0 Eos % (Auto) 1.7 Baso % (Auto) 0.5 Neut # (Auto) 2.3 Lymph # (Auto) 0.5 L [place] # (Auto) 0.3 Eos # (Auto) 0.1 Baso # (Auto) 0.0 Retic Count PT 11.8 INR 1.1 APTT 27 Sodium 137 Potassium 3.9 Chloride 106 Carbon Dioxide 25 Anion Gap 10 BUN 16 Creatinine 0.9 Est GFR ( Amer) > 60 Est GFR (Non-Af Amer) > 60 POC Glucose (mg/dL) Random Glucose 118 H Calcium 8.3 L Phosphorus Magnesium Iron TIBC % Saturation Ferritin Total Bilirubin 0.3 AST 74 H D ALT 123 H Alkaline Phosphatase 56 Troponin I < 0.0120 NT-Pro-B Natriuret Pep 125 Total Protein 6.2 L Albumin 3.3 L Globulin 2.9 Albumin/Globulin Ratio 1.1 Triglycerides Cholesterol LDL Cholesterol Direct HDL Cholesterol Stool Occult Blood Hepatitis A IgM Ab Hep Bs Antigen Hep B Core IgM Ab Hepatitis C Antibody Blood Type Blood Type Confirm Antibody Screen 04/04/17 04/04/17 04/04/17 18:34 19:59 20:42 WBC RBC Hgb Hct MCV MCH MCHC RDW Plt Count MPV Neut % (Auto) Lymph % (Auto) [place] % (Auto) Eos % (Auto) Baso % (Auto) Neut # (Auto) Lymph # (Auto) [place] # (Auto) Eos # (Auto) Baso # (Auto) Retic Count PT INR APTT Sodium Potassium Chloride Carbon Dioxide Anion Gap BUN Creatinine Est GFR ( Amer) Est GFR (Non-Af Amer) POC Glucose (mg/dL) Random Glucose Calcium Phosphorus Magnesium Iron 19 L TIBC 434 % Saturation 4 L Ferritin Total Bilirubin AST ALT Alkaline Phosphatase Troponin I NT-Pro-B Natriuret Pep Total Protein Albumin Globulin Albumin/Globulin Ratio Triglycerides Cholesterol LDL Cholesterol Direct HDL Cholesterol Stool Occult Blood Positive H Hepatitis A IgM Ab Hep Bs Antigen Hep B Core IgM Ab Hepatitis C Antibody Blood Type B POSITIVE Blood Type Confirm B POSITIVE Antibody Screen Negative 04/04/17 04/04/17 04/04/17 20:42 20:42 20:42 WBC RBC Hgb Hct MCV MCH MCHC RDW Plt Count MPV Neut % (Auto) Lymph % (Auto) [place] % (Auto) Eos % (Auto) Baso % (Auto) Neut # (Auto) Lymph # (Auto) [place] # (Auto) Eos # (Auto) Baso # (Auto) Retic Count 2.6 H PT INR APTT Sodium Potassium Chloride Carbon Dioxide Anion Gap BUN Creatinine Est GFR ( Amer) Est GFR (Non-Af Amer) POC Glucose (mg/dL) Random Glucose Calcium Phosphorus Magnesium Iron Cancelled TIBC Cancelled % Saturation Ferritin Total Bilirubin AST ALT Alkaline Phosphatase Troponin I NT-Pro-B Natriuret Pep Total Protein Albumin Globulin Albumin/Globulin Ratio Triglycerides Cholesterol LDL Cholesterol Direct HDL Cholesterol Stool Occult Blood Hepatitis A IgM Ab Negative Hep Bs Antigen Negative Hep B Core IgM Ab Negative Hepatitis C Antibody Negative Blood Type Blood Type Confirm Antibody Screen 04/05/17 04/05/17 04/05/17 06:26 11:39 11:39 WBC 3.7 L RBC 3.40 L Hgb 7.7 L D Hct 24.2 L MCV 71.2 L D MCH 22.7 L MCHC 31.9 L RDW 23.9 H Plt Count 201 MPV 9.1 Neut % (Auto) 72.8 Lymph % (Auto) 16.3 L [place] % (Auto) 8.4 Eos % (Auto) 1.8 Baso % (Auto) 0.7 Neut # (Auto) 2.7 Lymph # (Auto) 0.6 L [place] # (Auto) 0.3 Eos # (Auto) 0.1 Baso # (Auto) 0.0 Retic Count PT INR APTT Sodium 137 Potassium 3.8 Chloride 104 Carbon Dioxide 26 Anion Gap 10 BUN 14 Creatinine 0.9 Est GFR ( Amer) > 60 Est GFR (Non-Af Amer) > 60 POC Glucose (mg/dL) 81 Random Glucose 108 Calcium 8.3 L Phosphorus 3.3 Magnesium 1.8 Iron TIBC % Saturation Ferritin Total Bilirubin 0.9 AST 79 H ALT 124 H Alkaline Phosphatase 58 Troponin I NT-Pro-B Natriuret Pep Total Protein 5.9 L Albumin 3.1 L Globulin 2.8 Albumin/Globulin Ratio 1.1 Triglycerides 73 Cholesterol 123 LDL Cholesterol Direct 84 HDL Cholesterol 28 L Stool Occult Blood Hepatitis A IgM Ab Hep Bs Antigen Hep B Core IgM Ab Hepatitis C Antibody Blood Type Blood Type Confirm Antibody Screen 04/05/17 04/05/17 11:39 13:23 WBC RBC Hgb Hct MCV MCH MCHC RDW Plt Count MPV Neut % (Auto) Lymph % (Auto) [place] % (Auto) Eos % (Auto) Baso % (Auto) Neut # (Auto) Lymph # (Auto) [place] # (Auto) Eos # (Auto) Baso # (Auto) Retic Count PT INR APTT Sodium Potassium Chloride Carbon Dioxide Anion Gap BUN Creatinine Est GFR ( Amer) Est GFR (Non-Af Amer) POC Glucose (mg/dL) Random Glucose Calcium Phosphorus Magnesium Iron TIBC % Saturation Ferritin 6.6 Total Bilirubin AST ALT Alkaline Phosphatase Troponin I NT-Pro-B Natriuret Pep 138 Total Protein Albumin Globulin Albumin/Globulin Ratio Triglycerides Cholesterol LDL Cholesterol Direct HDL Cholesterol Stool Occult Blood Hepatitis A IgM Ab Hep Bs Antigen Hep B Core IgM Ab Hepatitis C Antibody Blood Type Blood Type Confirm Antibody Screen Assessment & Plan - Assessment and Plan (Free Text) Assessment: This is a 62yM with pmhx of DM presenting with generalized weakness, dizziness, SOB and found to have low hgb. 1. Symptomatic anemia Plan: -Continue supportive care -No active GI bleeding, hemodynamically stable -Hgb low s/p 2 U PRBCs with Hgb 7.7, monitor H/H and transfuse as needed -Pt will need EGD/Colonoscopy on Friday to r/o GI source for anemia -PPI daily -Diet as tolerated -Will continue to follow closely <Venkata Andre - Last Filed: 04/05/17 15:33> Meds - Medications Medications: Current Medications Dextrose (Dextrose 50% Inj) 0 ml IV STAT PRN; Protocol PRN Reason: Hypoglycemia Protocol Dextrose (Glutose 15) 0 gm PO ONCE PRN; Protocol PRN Reason: Hypoglycemia Protocol Ferric Sodium Gluconate Complex (Ferrlecit) 125 mg IVPB DAILY [facility] Stop: 04/10/17 10:01 Last Admin: 04/05/17 09:25 Dose: 125 mg Glucagon (Glucagen Diagnostic Kit) 0 mg IM STAT PRN; Protocol PRN Reason: Hypoglycemia Protocol Sodium Chloride (Sodium Chloride 0.9%) 1,000 mls @ 100 mls/hr IV .Q10H [facility] Last Admin: 04/04/17 21:31 Dose: 100 mls/hr Dextrose (Dextrose 5% In Water 1000 Ml) 1,000 mls @ 0 mls/hr IV .Q0M PRN; Protocol; Per Protocol PRN Reason: Hypoglycemia Protocol Insulin Aspart (Novolog) 0 unit SC Q6H K[facility]LEN PRN Reason: Protocol Last Admin: 04/05/17 13:41 Dose: Not Given Insulin Glargine (Lantus) 15 unit SC QPM [facility] Lisinopril (Zestril) 2.5 mg PO DAILY [facility] Last Admin: 04/05/17 09:25 Dose: 2.5 mg Ondansetron HCl (Zofran Inj) 4 mg IVP Q6 PRN PRN Reason: Nausea/Vomiting Pantoprazole Sodium (Protonix Inj) 40 mg IVP Q12H KAYLEN Rosuvastatin Calcium (Crestor) 2.5 mg PO HS [facility] Results - Vital Signs Recent Vital Signs: Last Vital Signs Temp 98.0 F 04/05/17 13:35 Pulse 91 H 04/05/17 13:35 Resp 20 04/05/17 13:35 BP 148/91 H 04/05/17 13:35 Pulse Ox 95 04/05/17 08:43 - Labs Result Diagrams: 04/05/17 11:39 04/05/17 11:39 Labs: Laboratory Results - last 24 hr 04/04/17 04/04/17 04/04/17 18:34 18:34 18:34 WBC 3.2 L D RBC 2.75 L Hgb 5.2 L* D Hct 17.7 L MCV 64.3 L D MCH 18.8 L MCHC 29.3 L RDW 18.5 H Plt Count 238 MPV 8.8 Neut % (Auto) 72.5 Lymph % (Auto) 16.3 L [place] % (Auto) 9.0 Eos % (Auto) 1.7 Baso % (Auto) 0.5 Neut # (Auto) 2.3 Lymph # (Auto) 0.5 L [place] # (Auto) 0.3 Eos # (Auto) 0.1 Baso # (Auto) 0.0 Retic Count PT 11.8 INR 1.1 APTT 27 Sodium 137 Potassium 3.9 Chloride 106 Carbon Dioxide 25 Anion Gap 10 BUN 16 Creatinine 0.9 Est GFR ( Amer) > 60 Est GFR (Non-Af Amer) > 60 POC Glucose (mg/dL) Random Glucose 118 H Calcium 8.3 L Phosphorus Magnesium Iron TIBC % Saturation Ferritin Total Bilirubin 0.3 AST 74 H D ALT 123 H Alkaline Phosphatase 56 Troponin I < 0.0120 NT-Pro-B Natriuret Pep 125 Total Protein 6.2 L Albumin 3.3 L Globulin 2.9 Albumin/Globulin Ratio 1.1 Triglycerides Cholesterol LDL Cholesterol Direct HDL Cholesterol Stool Occult Blood Hepatitis A IgM Ab Hep Bs Antigen Hep B Core IgM Ab Hepatitis C Antibody Blood Type Blood Type Confirm Antibody Screen 04/04/17 04/04/17 04/04/17 18:34 19:59 20:42 WBC RBC Hgb Hct MCV MCH MCHC RDW Plt Count MPV Neut % (Auto) Lymph % (Auto) [place] % (Auto) Eos % (Auto) Baso % (Auto) Neut # (Auto) Lymph # (Auto) [place] # (Auto) Eos # (Auto) Baso # (Auto) Retic Count PT INR APTT Sodium Potassium Chloride Carbon Dioxide Anion Gap BUN Creatinine Est GFR ( Amer) Est GFR (Non-Af Amer) POC Glucose (mg/dL) Random Glucose Calcium Phosphorus Magnesium Iron 19 L TIBC 434 % Saturation 4 L Ferritin Total Bilirubin AST ALT Alkaline Phosphatase Troponin I NT-Pro-B Natriuret Pep Total Protein Albumin Globulin Albumin/Globulin Ratio Triglycerides Cholesterol LDL Cholesterol Direct HDL Cholesterol Stool Occult Blood Positive H Hepatitis A IgM Ab Hep Bs Antigen Hep B Core IgM Ab Hepatitis C Antibody Blood Type B POSITIVE Blood Type Confirm B POSITIVE Antibody Screen Negative 04/04/17 04/04/17 04/04/17 20:42 20:42 20:42 WBC RBC Hgb Hct MCV MCH MCHC RDW Plt Count MPV Neut % (Auto) Lymph % (Auto) [place] % (Auto) Eos % (Auto) Baso % (Auto) Neut # (Auto) Lymph # (Auto) [place] # (Auto) Eos # (Auto) Baso # (Auto) Retic Count 2.6 H PT INR APTT Sodium Potassium Chloride Carbon Dioxide Anion Gap BUN Creatinine Est GFR ( Amer) Est GFR (Non-Af Amer) POC Glucose (mg/dL) Random Glucose Calcium Phosphorus Magnesium Iron Cancelled TIBC Cancelled % Saturation Ferritin Total Bilirubin AST ALT Alkaline Phosphatase Troponin I NT-Pro-B Natriuret Pep Total Protein Albumin Globulin Albumin/Globulin Ratio Triglycerides Cholesterol LDL Cholesterol Direct HDL Cholesterol Stool Occult Blood Hepatitis A IgM Ab Negative Hep Bs Antigen Negative Hep B Core IgM Ab Negative Hepatitis C Antibody Negative Blood Type Blood Type Confirm Antibody Screen 04/05/17 04/05/17 04/05/17 06:26 11:39 11:39 WBC 3.7 L RBC 3.40 L Hgb 7.7 L D Hct 24.2 L MCV 71.2 L D MCH 22.7 L MCHC 31.9 L RDW 23.9 H Plt Count 201 MPV 9.1 Neut % (Auto) 72.8 Lymph % (Auto) 16.3 L [place] % (Auto) 8.4 Eos % (Auto) 1.8 Baso % (Auto) 0.7 Neut # (Auto) 2.7 Lymph # (Auto) 0.6 L [place] # (Auto) 0.3 Eos # (Auto) 0.1 Baso # (Auto) 0.0 Retic Count PT INR APTT Sodium 137 Potassium 3.8 Chloride 104 Carbon Dioxide 26 Anion Gap 10 BUN 14 Creatinine 0.9 Est GFR ( Amer) > 60 Est GFR (Non-Af Amer) > 60 POC Glucose (mg/dL) 81 Random Glucose 108 Calcium 8.3 L Phosphorus 3.3 Magnesium 1.8 Iron TIBC % Saturation Ferritin Total Bilirubin 0.9 AST 79 H ALT 124 H Alkaline Phosphatase 58 Troponin I NT-Pro-B Natriuret Pep Total Protein 5.9 L Albumin 3.1 L Globulin 2.8 Albumin/Globulin Ratio 1.1 Triglycerides 73 Cholesterol 123 LDL Cholesterol Direct 84 HDL Cholesterol 28 L Stool Occult Blood Hepatitis A IgM Ab Hep Bs Antigen Hep B Core IgM Ab Hepatitis C Antibody Blood Type Blood Type Confirm Antibody Screen 04/05/17 04/05/17 11:39 13:23 WBC RBC Hgb Hct MCV MCH MCHC RDW Plt Count MPV Neut % (Auto) Lymph % (Auto) [place] % (Auto) Eos % (Auto) Baso % (Auto) Neut # (Auto) Lymph # (Auto) [place] # (Auto) Eos # (Auto) Baso # (Auto) Retic Count PT INR APTT Sodium Potassium Chloride Carbon Dioxide Anion Gap BUN Creatinine Est GFR ( Amer) Est GFR (Non-Af Amer) POC Glucose (mg/dL) Random Glucose Calcium Phosphorus Magnesium Iron TIBC % Saturation Ferritin 6.6 Total Bilirubin AST ALT Alkaline Phosphatase Troponin I NT-Pro-B Natriuret Pep 138 Total Protein Albumin Globulin Albumin/Globulin Ratio Triglycerides Cholesterol LDL Cholesterol Direct HDL Cholesterol Stool Occult Blood Hepatitis A IgM Ab Hep Bs Antigen Hep B Core IgM Ab Hepatitis C Antibody Blood Type Blood Type Confirm Antibody Screen Attending/Attestation - Attestation I have personally seen and examined this patient.: Yes I have fully participated in the care of the patient.: Yes I have reviewed all pertinent clinical information: Yes Notes (Text): 04/05/17 15:32 62 year old male who presents with SOB found to have severe anemia. 1. Iron deficiency anemia 2. Occult GI bleeding Plan: -transfuse 2 units of blood -start ppi for possible pud -likely endoscopic eval friday -supportive measures in the meantime clear liquids tomorrow
[2017-04-05 16:03] VITALS: RESP 18
[2017-04-05 16:27] VITALS: BP 146/87; PULSE 85; TEMP 97.9
[2017-04-05 16:53] VITALS: O2SAT 96
[2017-04-05] MEDS ORDERED: (Lantus) Insulin Glargine, Recombinant SC SCH ×3 (22:00)
--- NOTE | 2017-04-06 07:15 | CP.PCM.DIS ---
<Michael Nicole - Last Filed: 04/06/17 07:15> Provider - Provider Date of Admission: 04/04/17 20:00 Attending physician: Urszula Liu DO Consults: GI: Dr. Andre Time Spent in preparation of Discharge (in minutes): 55 Hospital Course - Lab Results Lab Results: Most Recent Lab Values WBC 3.7 K/uL (4.8-10.8) L 04/05/17 11:39 RBC 3.40 Mil/uL (4.40-5.90) L 04/05/17 11:39 Hgb 7.7 g/dL (12.0-18.0) L D 04/05/17 11:39 Hct 24.2 % (35.0-51.0) L 04/05/17 11:39 MCV 71.2 fL (80.0-94.0) L D 04/05/17 11:39 MCH 22.7 pg (27.0-31.0) L 04/05/17 11:39 MCHC 31.9 g/dL (33.0-37.0) L 04/05/17 11:39 RDW 23.9 % (11.5-14.5) H 04/05/17 11:39 Plt Count 201 K/uL (130-400) 04/05/17 11:39 MPV 9.1 fL (7.2-11.7) 04/05/17 11:39 Neut % (Auto) 72.8 % (50.0-75.0) 04/05/17 11:39 Lymph % (Auto) 16.3 % (20.0-40.0) L 04/05/17 11:39 Pepin % (Auto) 8.4 % (0.0-10.0) 04/05/17 11:39 Eos % (Auto) 1.8 % (0.0-4.0) 04/05/17 11:39 Baso % (Auto) 0.7 % (0.0-2.0) 04/05/17 11:39 Neut # (Auto) 2.7 K/uL (1.8-7.0) 04/05/17 11:39 Lymph # (Auto) 0.6 K/uL (1.0-4.3) L 04/05/17 11:39 Pepin # (Auto) 0.3 K/uL (0.0-0.8) 04/05/17 11:39 Eos # (Auto) 0.1 K/uL (0.0-0.7) 04/05/17 11:39 Baso # (Auto) 0.0 K/uL (0.0-0.2) 04/05/17 11:39 Retic Count 2.6 % (0.5-1.5) H 04/04/17 20:42 PT 11.8 SECONDS (9.7-12.2) 04/04/17 18:34 INR 1.1 04/04/17 18:34 APTT 27 SECONDS (21-34) 04/04/17 18:34 Sodium 137 mmol/L (132-148) 04/05/17 11:39 Potassium 3.8 mmol/L (3.6-5.2) 04/05/17 11:39 Chloride 104 mmol/L (98-107) 04/05/17 11:39 Carbon Dioxide 26 mmol/L (22-30) 04/05/17 11:39 Anion Gap 10 (10-20) 04/05/17 11:39 BUN 14 mg/dL (9-20) 04/05/17 11:39 Creatinine 0.9 mg/dL (0.8-1.5) 04/05/17 11:39 Est GFR ( Amer) > 60 04/05/17 11:39 Est GFR (Non-Af Amer) > 60 04/05/17 11:39 POC Glucose (mg/dL) 76 mg/dL (65-110) 04/05/17 16:34 Random Glucose 108 mg/dL (75-110) 04/05/17 11:39 Calcium 8.3 mg/dl (8.6-10.4) L 04/05/17 11:39 Phosphorus 3.3 mg/dL (2.5-4.5) 04/05/17 11:39 Magnesium 1.8 mg/dL (1.6-2.3) 04/05/17 11:39 Iron 19 ug/dL (49-181) L 04/04/17 20:42 TIBC 434 ug/dL (250-450) 04/04/17 20:42 % Saturation 4 (20-55) L 04/04/17 20:42 Ferritin 6.6 ng/mL 04/05/17 13:23 Total Bilirubin 0.9 mg/dL (0.2-1.3) 04/05/17 11:39 AST 79 U/L (17-59) H 04/05/17 11:39 ALT 124 U/L (21-72) H 04/05/17 11:39 Alkaline Phosphatase 58 U/L (38-126) 04/05/17 11:39 Troponin I < 0.0120 ng/mL (0.00-0.120) 04/04/17 18:34 NT-Pro-B Natriuret Pep 138 pg/mL (0-900) 04/05/17 11:39 Total Protein 5.9 g/dL (6.3-8.3) L 04/05/17 11:39 Albumin 3.1 g/dL (3.5-5.0) L 04/05/17 11:39 Globulin 2.8 gm/dL (2.2-3.9) 04/05/17 11:39 Albumin/Globulin Ratio 1.1 (1.0-2.1) 04/05/17 11:39 Triglycerides 73 mg/dL (0-149) 04/05/17 11:39 Cholesterol 123 mg/dL (0-199) 04/05/17 11:39 LDL Cholesterol Direct 84 mg/dL (0-129) 04/05/17 11:39 HDL Cholesterol 28 mg/dL (30-70) L 04/05/17 11:39 Stool Occult Blood Positive (NEGATIVE) H 04/04/17 19:59 Hepatitis A IgM Ab Negative (NEGATIVE) 04/04/17 20:42 Hep Bs Antigen Negative (NEGATIVE) 04/04/17 20:42 Hep B Core IgM Ab Negative (NEGATIVE) 04/04/17 20:42 Hepatitis C Antibody Negative (NEGATIVE) 04/04/17 20:42 Blood Type B POSITIVE 04/04/17 18:34 Blood Type Confirm B POSITIVE 04/04/17 18:34 Antibody Screen Negative 04/04/17 18:34 - Hospital Course Hospital Course: 62 Male with PMHx of T2DM (diagnosed 2016) presents to the ED after being sent in by PMD for hemoglobin 5.2 with + stool occult. Symptomatic Anemia GI consulted - Dr. Andre- help appreciated Baseline hemoglobin 9.2 on 1/05/18 On admission 5.2-->7.7 response appropriate, will give 2 more units today EKG: Sinus Tachy on admission + stool occult, no active bleed, f/u 2 stool occults No prior colonoscopy; no fam hx of cancer; no B symptoms Will be transfused 2 units of PRBCs. 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 Patient eloped. Nursing street supervisor called. IV found on floor in room. Discharge Exam - Head Exam Head Exam: ATRAUMATIC, NORMAL INSPECTION, NORMOCEPHALIC Additional comments: Appears: Non-toxic, No Acute Distress - Eye Exam Eye Exam: EOMI, Normal appearance, PERRL - ENT Exam ENT Exam: Mucous Membranes Moist - Neck Exam Neck exam: Positive for: Normal Inspection - Respiratory Exam Respiratory Exam: Clear to Auscultation Bilateral, NORMAL BREATHING PATTERN - Cardiovascular Exam Cardiovascular Exam: REGULAR RHYTHM - GI/Abdominal Exam GI & Abdominal Exam: Normal Bowel Sounds - Rectal Exam Rectal Exam: NORMAL INSPECTION - Extremities Exam Extremities exam: Positive for: full ROM - Back Exam Back exam: NORMAL INSPECTION - Neurological Exam Neurological exam: Alert, Oriented x3 - Psychiatric Exam Psychiatric exam: Normal Affect, Normal Mood - Skin Skin Exam: Dry, Intact, Normal Color, Warm Discharge Plan - Follow Up Plan Condition: UNKNOWN Disposition: AGAINST MEDICAL ADVICE Patient education suggested?: Yes Additional Instructions: patient needs to receive colonscopy; has never received one plus active GI bleed ; patient should f/u with GI doctor This was stressed over and over by myself and attending physician Dr. Liu patient needs to control diabetes better; lifestyle mods as well as adherence to medications <Urszula Liu V - Last Filed: 04/06/17 07:39> Provider - Provider Date of Admission: 04/04/17 20:00 Attending physician: Urszula Liu, [facility] Course - Lab Results Lab Results: Most Recent Lab Values WBC 3.7 K/uL (4.8-10.8) L 04/05/17 11:39 RBC 3.40 Mil/uL (4.40-5.90) L 04/05/17 11:39 Hgb 7.7 g/dL (12.0-18.0) L D 04/05/17 11:39 Hct 24.2 % (35.0-51.0) L 04/05/17 11:39 MCV 71.2 fL (80.0-94.0) L D 04/05/17 11:39 MCH 22.7 pg (27.0-31.0) L 04/05/17 11:39 MCHC 31.9 g/dL (33.0-37.0) L 04/05/17 11:39 RDW 23.9 % (11.5-14.5) H 04/05/17 11:39 Plt Count 201 K/uL (130-400) 04/05/17 11:39 MPV 9.1 fL (7.2-11.7) 04/05/17 11:39 Neut % (Auto) 72.8 % (50.0-75.0) 04/05/17 11:39 Lymph % (Auto) 16.3 % (20.0-40.0) L 04/05/17 11:39 Pepin % (Auto) 8.4 % (0.0-10.0) 04/05/17 11:39 Eos % (Auto) 1.8 % (0.0-4.0) 04/05/17 11:39 Baso % (Auto) 0.7 % (0.0-2.0) 04/05/17 11:39 Neut # (Auto) 2.7 K/uL (1.8-7.0) 04/05/17 11:39 Lymph # (Auto) 0.6 K/uL (1.0-4.3) L 04/05/17 11:39 Pepin # (Auto) 0.3 K/uL (0.0-0.8) 04/05/17 11:39 Eos # (Auto) 0.1 K/uL (0.0-0.7) 04/05/17 11:39 Baso # (Auto) 0.0 K/uL (0.0-0.2) 04/05/17 11:39 Retic Count 2.6 % (0.5-1.5) H 04/04/17 20:42 PT 11.8 SECONDS (9.7-12.2) 04/04/17 18:34 INR 1.1 04/04/17 18:34 APTT 27 SECONDS (21-34) 04/04/17 18:34 Sodium 137 mmol/L (132-148) 04/05/17 11:39 Potassium 3.8 mmol/L (3.6-5.2) 04/05/17 11:39 Chloride 104 mmol/L (98-107) 04/05/17 11:39 Carbon Dioxide 26 mmol/L (22-30) 04/05/17 11:39 Anion Gap 10 (10-20) 04/05/17 11:39 BUN 14 mg/dL (9-20) 04/05/17 11:39 Creatinine 0.9 mg/dL (0.8-1.5) 04/05/17 11:39 Est GFR ( Amer) > 60 04/05/17 11:39 Est GFR (Non-Af Amer) > 60 04/05/17 11:39 POC Glucose (mg/dL) 76 mg/dL (65-110) 04/05/17 16:34 Random Glucose 108 mg/dL (75-110) 04/05/17 11:39 Calcium 8.3 mg/dl (8.6-10.4) L 04/05/17 11:39 Phosphorus 3.3 mg/dL (2.5-4.5) 04/05/17 11:39 Magnesium 1.8 mg/dL (1.6-2.3) 04/05/17 11:39 Iron 19 ug/dL (49-181) L 04/04/17 20:42 TIBC 434 ug/dL (250-450) 04/04/17 20:42 % Saturation 4 (20-55) L 04/04/17 20:42 Ferritin 6.6 ng/mL 04/05/17 13:23 Total Bilirubin 0.9 mg/dL (0.2-1.3) 04/05/17 11:39 AST 79 U/L (17-59) H 04/05/17 11:39 ALT 124 U/L (21-72) H 04/05/17 11:39 Alkaline Phosphatase 58 U/L (38-126) 04/05/17 11:39 Troponin I < 0.0120 ng/mL (0.00-0.120) 04/04/17 18:34 NT-Pro-B Natriuret Pep 138 pg/mL (0-900) 04/05/17 11:39 Total Protein 5.9 g/dL (6.3-8.3) L 04/05/17 11:39 Albumin 3.1 g/dL (3.5-5.0) L 04/05/17 11:39 Globulin 2.8 gm/dL (2.2-3.9) 04/05/17 11:39 Albumin/Globulin Ratio 1.1 (1.0-2.1) 04/05/17 11:39 Triglycerides 73 mg/dL (0-149) 04/05/17 11:39 Cholesterol 123 mg/dL (0-199) 04/05/17 11:39 LDL Cholesterol Direct 84 mg/dL (0-129) 04/05/17 11:39 HDL Cholesterol 28 mg/dL (30-70) L 04/05/17 11:39 Stool Occult Blood Positive (NEGATIVE) H 04/04/17 19:59 Hepatitis A IgM Ab Negative (NEGATIVE) 04/04/17 20:42 Hep Bs Antigen Negative (NEGATIVE) 04/04/17 20:42 Hep B Core IgM Ab Negative (NEGATIVE) 04/04/17 20:42 Hepatitis C Antibody Negative (NEGATIVE) 04/04/17 20:42 Blood Type B POSITIVE 04/04/17 18:34 Blood Type Confirm B POSITIVE 04/04/17 18:34 Antibody Screen Negative 04/04/17 18:34 Attending/Attestation - Attestation I have personally seen and examined this patient.: Yes I have fully participated in the care of the patient.: Yes I have reviewed all pertinent clinical information, including history, physical exam and plan: Yes Notes (Text): Patient eloped from the hospital 2/17/18. Patient was instructed during the day if he left prematurely given we know he is bleeding he would be leaving against medical advice. Family was contacted Nursing street supervisor was contacted
--- NOTE | 2017-04-06 10:21 | CARD ---
APPROVED REPORT EXAM: Two-dimensional and M-mode echocardiogram with Doppler and color Doppler. Other Information Quality : GoodRhythm : INDICATION Dyspnea RISK FACTORS Hyperlipidemia M-Mode DIMENSIONS Left Atrium (MM)3.54 (2.5-4.0cm)IVSd0.68 (0.7-1.1cm) Aortic Root3.12 (2.2-3.7cm)LVDd5.10 (4.0-5.6cm) Aortic Cusp Exc.1.53 (1.5-2.0cm)PWd0.65 (0.7-1.1cm) FS (%) 29 %LVDs3.61 (2.0-3.8cm) LVEF (%)56 (>50%) Mitral Valve MV E Uxltomax357.9cm/sMV A Scllubhu834.4cm/sE/A ratio1.1 TDI E/Lateral E'0.0E/Medial E'0.0 Tricuspid Valve TR Peak [id number]/sTR Peak Gr.[id number] LEFT VENTRICLE The left ventricle is normal size. There is normal left ventricular wall thickness. Left ventricle systolic function is mildly impaired. The Ejection Fraction is 50-55%. There is hypokinesis in the basal inferolateral wall. Transmitral Doppler flow pattern is Grade II-pseudonormal filling dynamics. There is no ventricular septal defect visualized. RIGHT VENTRICLE The right ventricle is normal size. The right ventricular systolic function is normal. ATRIA The left atrium is mildly dilated. The right atrium size is normal. AORTIC VALVE The aortic valve is mildly sclerotic. The aortic valve is tri-cuspid. There is mild aortic regurgitation. There is no aortic valvular stenosis. MITRAL VALVE The mitral valve is normal in structure. There is no evidence of mitral valve prolapse. There is no mitral valve regurgitation noted. TRICUSPID VALVE The tricuspid valve is normal in structure. There is trace tricuspid regurgitation. Right ventricular systolic pressure is estimated at 30-40 mmHg. There is mild pulmonary hypertension. PULMONIC VALVE The pulmonic valve is not well visualized. There is trace pulmonic valvular regurgitation. GREAT VESSELS The aortic root is normal in size. The IVC is normal in size and collapses >50% with inspiration. PERICARDIAL EFFUSION There is no pericardial effusion. <Conclusion> Left ventricle systolic function is mildly impaired. The Ejection Fraction is 50-55%. There is hypokinesis in the basal inferolateral wall. Transmitral Doppler flow pattern is Grade II-pseudonormal filling dynamics. There is mild aortic regurgitation. There is mild pulmonary hypertension.
--- NOTE | 2017-04-07 12:48 | CARD ---
APPROVED REPORT EKG Measurement Heart [id number] <Conclusion> Sinus tachycardia Otherwise normal ECG
== END 2017-04-05 20:05 | disposition left against medical advice (07) | DRG 395 ==
LOC: C.ER 16:35 → C.6T 20:00 → C.9E 20:00
PROVIDERS: ADMIT Family Medicine; ATTEND Hospitalist
PROC: 30233N1 Transfusion of Nonautologous Red Blood Cells into Peripheral Vein, Percutaneous Approach (ICD-10-PCS; principal; 2017-04-05)
DX: D50.9 Iron deficiency anemia, unspecified (principal); K92.2 Gastrointestinal hemorrhage, unspecified; E11.9 Type 2 diabetes mellitus without complications; R74.0 Nonspecific elevation of levels of transaminase and lactic acid dehydrogenase [LDH]; Z79.4 Long term (current) use of insulin